=== PATIENT | male | born 1945 | race Caucasian/White ===

== ENCOUNTER 2021-09-14 18:58 | Emergency (ER) | payer OTHER ==
[~2021-09-14] VITALS: Ht 175.3 cm; Wt 79.4 kg
[2021-09-14] MEDS ORDERED: VAZALORE81 MG PO (19:17)
[2021-09-14] MEDS ORDERED: XARELTO1 EACH (19:17)
[2021-09-14] MEDS ORDERED: PROAIR HFA8.5 GM ×2 (19:18)
[2021-09-14] MEDS ORDERED: OXYGEN NASAL (19:19)
[2021-09-14] MEDS ORDERED: SYMBICORT160 MCG/4. INH (19:28)
[2021-09-14 19:57] LABS: ABSOLUTE NEUTROPHILS 7.5 thou/uL (1.4-8.2); BASOPHILS 0.8 % (0.0-2.0); EOSINOPHILS 0.9 % (0.0-3.0); HEMOGLOBIN 13.7 gm/dL (14.0-18.0); LYMPHOCYTES 10.1 % (24.0-44.0); MCH 31.1 pg (26.0-34.0); MCHC 33.4 g/dL (28.0-37.0); MCV 93.1 fL (80.0-100.0); MONOCYTES 7.3 % (1.0-8.0); PLATELET COUNT 243 thou/uL (150-400); POLYS 80.9 % (36.0-66.0); RDW 13.8 % (10.5-14.5); WBC 9.2 thou/uL (4.0-11.0)
[2021-09-14 20:10] LABS: CALCIUM 8.1 mg/dL (8.5-10.1); CREATININE 1.2 mg/dL (0.7-1.3); POTASSIUM 3.8 mmol/L (3.5-5.1)
[2021-09-14 20:28] LABS: URINE BILIRUBIN NEGATIVE (Negative); URINE BLOOD 3+ (Negative); URINE CLARITY CLOUDY; URINE COLOR YELLOW; URINE GLUCOSE-RANDOM* NEGATIVE (Negative); URINE KETONES NEGATIVE (Negative); URINE PROTEIN (DIPSTICK) 1+ (Negative); URINE SPECIFIC GRAVITY >= 1.030 (1.005-1.035)
[2021-09-14 20:29] LABS: URINE LEUKOCYTES-REFLEX 2+ (Negative); URINE NITRITE-REFLEX POSITIVE (Negative)
[2021-09-14 20:43] LABS: BACTERIA-REFLEX >30 Many /HPF (None Seen); CASTS None Seen /LPF (None Seen); CRYSTALS None Seen /LPF (None Seen); SQUAMOUS None Seen /LPF (0-3); URINE RBC >20 Many /HPF (NONE SEEN); URINE WBC-REFLEX >25 Many /HPF (0-5); WBC CLUMPS Few (None Seen)
[2021-09-14] MEDS ORDERED: xarelto PO (20:47)
[2021-09-14] MEDS ORDERED: ASPIRIN 81 MG PO (20:48)
[2021-09-14] MEDS ORDERED: WELLBUTRIN PO (20:48)
[2021-09-14] MEDS ORDERED: METOPROLOL PO (21:17)
[2021-09-14] MEDS ORDERED: DOXYCYCLINE 10100 MG PO (21:19)
[2021-09-14 21:46] VITALS: BP 128/80
[2021-09-15] MEDS ORDERED: POLYMYXIN B/TMP10 ML INTRAOCULR (17:47)
== END 2021-09-14 21:47 | disposition home or self-care (01) ==
LOC: ER 18:58
PROVIDERS: Student in an Organized Health Care Education/Training Program
DX: N39.0 Urinary tract infection, site not specified (principal); R31.9 Hematuria, unspecified; J44.1 Chronic obstructive pulmonary disease with (acute) exacerbation; Z79.899 Other long term (current) drug therapy

== ENCOUNTER 2021-09-15 17:20 | Emergency (ER) | payer OTHER ==
[~2021-09-15] VITALS: Ht 180.3 cm; Wt 79.4 kg
[~2021-09-15 17:20] MED LIST: ASPIRIN 81 MG PO; DOXYCYCLINE 10100 MG PO; METOPROLOL PO; OXYGEN NASAL; PROAIR HFA8.5 GM; SYMBICORT160 MCG/4. INH; VAZALORE81 MG PO; WELLBUTRIN PO; XARELTO1 EACH; xarelto PO
[2021-09-15 17:29] VITALS: BP 132/75
[2021-09-15] MEDS ORDERED: POLYMYXIN B/TMP10 ML INTRAOCULR (17:47)
== END 2021-09-15 18:15 | disposition home or self-care (01) ==
LOC: ER 17:20
DX: T15.91XA Foreign body on external eye, part unspecified, right eye, initial encounter (principal); J44.9 Chronic obstructive pulmonary disease, unspecified; Z79.899 Other long term (current) drug therapy